=== PATIENT | male | born 1975 | race African-American/Black ===

== ENCOUNTER 2017-11-09 14:01 | Outpatient (CLI) | payer OTHER ==
--- NOTE | 2017-11-09 15:36 | CT ---
CT ARTERIOGRAM ABDOMEN AND PELVIS WITH BILATREAL RUNOFF WITH IV CONTRAST AND 3D MIP IMAGING: HISTORY: Atherosclerosis. Claudication. FINDINGS: Minimal plaque is present within the abdominal aorta. The abdominal aorta and visceral arteries are patent. RIGHT: There is mild plaque in the common femoral artery. Complete occlusion of the right femoral artery or igin is present. Collateral flow via the deep femoral artery reperfuses the popliteal artery at the adductor hiatus. There is mild irregular narrowing within the popliteal artery. Two-vessel runoff t o the ankle is via the posterior tibial and dorsalis pedis arteries. LEFT: Mild plaque is present in the common femoral and femoral arteries. Numerous stents are present along the course of the patent left femoral artery. The popliteal artery is patent. Two-vessel runoff to the ankle is primarily via the peroneal and dorsalis pedis arteries. IMPRESSION: Significant disease is limited to the femoral arteries, with long-segment occlusion of the right femo ral artery and numerous stents holding open the left femoral artery. POS: WAN
[2017-11-09] MEDS ORDERED: Iopamidol 370 76% 100 ML VIAL ONE (17:08)
== END 2017-11-09 14:02 | disposition home or self-care (01) ==
LOC: CT 14:01
PROVIDERS: ATTEND Thoracic Surgery (Cardiothoracic Vascular Surgery)
DX: I73.9 Peripheral vascular disease, unspecified (principal)
CPT/HCPCS: 75635

== ENCOUNTER 2018-05-27 20:00 | Emergency (ER) | payer OTHER ==
[2018-05-27 22:22] LABS: #Basophils 0.1 thou/uL (0.0-0.2); #Eosinphils 0.3 thou/uL (0.0-0.7); #Lymphocytes 3.5 thou/uL (1.20-3.40); #Monocytes 0.6 thou/uL (0.11-0.59); #Neutrophils 2.9 thou/uL (1.40-6.50); %Basophils 1.2 % (0.0-1.0); %Eosinophils 3.5 % (0.0-10.0); %Lymphocytes 47.2 % (21.0-51.0); %Monocytes 8.3 % (0.0-10.0); %Neutrophils 39.7 % (42.0-75.0); Hemoglobin 14.4 g/dL (14.0-18.0); Mean Corpuscular HGB CONC 35.2 g/dL (32.0-36.0); Mean Corpuscular Hemoglobin 29.6 pg (27.0-31.0); Mean Corpuscular Volume 84.2 fL (78.0-98.0); Mean Platelet Volume 9.2 fL (7.4-10.4); Platelet Count 185 thou/uL (130-400); RBC Distribution Width 14.9 % (11.5-14.5); Red Blood Cell (RBC) Count 4.86 mill/uL (4.70-6.10); White Blood Cell (WBC) Count 7.4 thou/uL (4.8-10.8)
[2018-05-27 22:26] LABS: PTT 31.2 SEC (22.9-36.1); Prothrombin Time 13.4 SEC (12.0-14.7)
--- NOTE | 2018-05-27 22:28 | RAD ---
RADIOGRAPH RIGHT KNEE FOUR VIEWS: History: 43-year-old male with right knee pain. FINDINGS: No joint effusion. No edema in Hoffa's fat pad. Joint spaces are maintained without erosions or osteo phytes. No fracture or dislocation. No periostitis or permeative lesion. Short segment of atheroscler otic calcification involve the popliteal artery. IMPRESSION: 1. Normal knee. 2. Atherosclerosis of the popliteal artery. POS: WAN
[2018-05-27 22:35] LABS: Anion Gap 13 mmol/L (10-20); BUN (Urea Nitrogen) 15 mg/dL (8.9-20.6); Calc. Creatinine Clearance 0 mL/min (70-130); Calcium 9.1 mg/dL (7.8-10.44); Carbon Dioxide 22 mmol/L (22-29); Chloride 110 mmol/L (98-107); Estimated GFR-MDRD 68; Glucose 100 mg/dL (70-105); Potassium 4.1 mmol/L (3.5-5.1); Sodium 141 mmol/L (136-145)
--- NOTE | 2018-05-27 23:20 | ULT ---
ULTRASOUND WITH DOPPLER DUPLEX VENOUS LOWER EXTREMITY RIGHT: HISTORY: 43-year-old male with right lower extremity pain. TECHNIQUE: Color flow Doppler, spectral waveform analysis of pulsed Doppler, and hawk-scale imaging with sarah shoaib and augmentation, were used to evaluate the right common femoral, femoral, popliteal, posterior tibial, and superficial femoral, veins; and the proximal portions of the profunda femoral and greater saphenous, veins. FINDINGS: There is normal compressibility, demonstration of blood flow by color Doppler and pulsed Doppler, and response to augmentation, in all interrogated veins. IMPRESSION: Negative. No deep vein thrombosis in the right lower extremity. marifer POS: WAN
--- NOTE | 2018-05-28 00:01 | ULT ---
ULTRASOUND DOPPLER DUPLEX ARTERIAL RIGHT LOWER EXTREMITY: DATE: 05-27-18 TIME: 11:19 p.m. HISTORY: 43-year-old male with right lower extremity pain. History of vascular insufficiency. TECHNIQUE: Grayscale, color flow, and spectral analysis of major arteries of right lower extremity. FINDINGS: Peak systolic velocities given in cm/s followed by pulse doppler waveform. Common femoral: 80, triphasic Profunda femoral: 140, triphasic Superficial femoral, proximal: No flow detected Superficial femoral, mid: No flow detected Superficial femoral, distal: 110, monophasic Popliteal: 30, monophasic Posterior tibial proximal: 20, monophasic Posterior tibial mid: 20, monophasic Posterior tibial distal: 20, monophasic Anterior tibial: No flow detected Dorsalis pedis: No flow detected IMPRESSION: 1. Total versus near-total occlusion of right superficial femoral artery, from proximal to mid segmen ts. Reconstitution of flow at distal segment. 2. Abnormally low velocities and abnormal waveforms in the right popliteal artery through the entire posterior tibial artery. 3. Occlusion of right anterior tibial artery and dorsalis pedis artery. POS: WAN
--- NOTE | 2018-05-28 01:36 | CON ---
DATE OF CONSULTATION: 05/28/2018 EMERGENCY DEPARTMENT VISIT HISTORY OF PRESENT ILLNESS: I was called to see the patient with "acute thrombosis of his right leg. " The patient had an arterial ultrasound, which shows diminished waveforms and occlusion of the supe rficial femoral artery with monophasic waveforms distally. Of note, the patient has a chronic peripheral vascular history. He has undergone INSERTER OPERATOR and stenting of the left distal superficial femoral artery in 2013. Subsequent angiograms and INSERTER OPERATOR with drug-eluting balloon in 2016 of the left superficial femoral artery. He was seen in October of this year with a CT angiogram and I had a long discussion with him in regard to his right leg. At that time, he had 50-yard claudication. He had monophasic Doppler signals in his dorsalis pedis, posterior tibial dean waqas. He was advised that he needed a wlxwbls-zv-cuvuvadvs bypass and has failed to follow up. When questioned on this, the patient states that he just had things come up and was not able to follow up . Today, he comes in to the Emergency Department with right knee pain. This was felt to be a vascular issue and arterial ultrasound was performed due to the perceived vascular nature of his right knee pa in. The patient continues to have 50-yard claudication. He has no rest pain. He has no ulcerations . He has no history of tissue loss or impending limb loss. PAST MEDICAL HISTORY: 1. Peripheral vascular disease. 2. Hyperlipidemia. 3. Hypertension. 4. Claudication. 5. History of cerebrovascular accident. PAST SURGICAL HISTORY: 1. Angiograms and stenting of his left distal superficial femoral artery in 2013. 2. Thrombectomy of SFA, popliteal, PT with drug-eluting balloon angioplasty in 2017. SOCIAL HISTORY: He is a former smoker that quit at the end of 2016. ALLERGIES: None. CURRENT MEDICATIONS: 1. Aspirin 81 mg daily. 2. Carvedilol 25 mg b.i.d. 3. Amlodipine 10 mg daily. 4. Atorvastatin 40 mg every day. REVIEW OF SYSTEMS: Not performed due to the patient's reluctance to discuss. PHYSICAL EXAMINATION: GENERAL: This is a well-developed, well-nourished man who is actually asleep in the room when I walk ed in. His girlfriend is present and helps with our discussion. VITAL SIGNS: His pulse is 85 and regular, blood pressure is 140/72. HEENT: Sclerae nonicteric. Pupils equal and round bilaterally. NECK: Supple. He has no carotid bruits. He has no adenopathy. CHEST: Clear bilaterally. HEART: Rhythm is regular without murmur. ABDOMEN: Soft and nontender without mass. EXTREMITIES: There is no cyanosis, clubbing, or edema. Veins are full bilaterally. Feet are of equ al temperature bilaterally. VASCULAR: He has palpable carotid, radial, and femoral pulses bilaterally. His dorsalis pedis and p osterior tibial pulses are dopplerable on the left with a biphasic signal. On the right, there is a monophasic signal distally. CT angiogram from 10/2017 has been reviewed. ASSESSMENT AND PLAN: This is a 43-year-old gentleman who came to the Emergency Department with a rig ht knee pain. He has had a vascular workup which has nothing to do with his right knee pain. He has been a very unreliable patient in followup. He left AMA from his last angiogram when Dr. Anthony was trying to do a yyhlmud-ev-qwmkckdiu bypass. I have seen him back in the office and been unable to g et him come in for pbgxvgc-yj-qgbwnytzs bypass. Apparently, the claudication on his right leg is not severe enough yet that he is willing to undergo bypass. In regards to his right knee pain, I have discussed with the Emergency Department physician that he n eeds to work his knee pain up and see if he can help him with his knee pain. I will try once again t o reschedule him for an office visit in hopes that I can sort through some of these other issues and help him get the help that he needs with his vascular issues.
== END 2018-05-28 01:19 | disposition home or self-care (01) ==
LOC: ERS 20:00
DX: I77.1 Stricture of artery (principal); M25.561 Pain in right knee; I10 Essential (primary) hypertension; Z79.899 Other long term (current) drug therapy
CPT/HCPCS: 80048; 85025; 85610; 85730; 93923; 96374; J2270

== ENCOUNTER 2018-06-06 11:15 | Inpatient (IN) | payer OTHER ==
[2018-06-07] MEDS ORDERED: Fentanyl 250 MCG/5 ML VIAL ONE ×2 (10:28→14:26)
[2018-06-07] MEDS ORDERED: PHENYLEPHRINE-NS 100 MCG/ML 10 ML SYRINGE ONE (10:28)
[2018-06-07] MEDS ORDERED: Phenylephrine HCL 10 MG/ML VIAL ONE (10:30)
[2018-06-07] MEDS ORDERED: Protamine Sulfate 50 MG/5 ML VIAL ONE (10:38)
[2018-06-07] MEDS ORDERED: Heparin 5,000 UNITS/ML VIAL ONE ×2 (10:38→12:34)
[2018-06-07] MEDS ORDERED: CEFAZOLIN/Water 2 GM/20 ML SYRINGE ONE (10:41)
[2018-06-07] MEDS ORDERED: Midazolam HCl 2 mg/2 ml Vial ONE (12:10)
[2018-06-07] MEDS ORDERED: Fentanyl 100 MCG/2 ML VIAL ONE (12:10)
[2018-06-07] MEDS ORDERED: Heparin 10,000 UNITS/1 ML VIAL ONE (12:35)
[2018-06-07] MEDS ORDERED: HYDROmorphone 2 MG/ML VIAL ONE (14:26)
[2018-06-07] MEDS ORDERED: hydrALAZINE 20 MG/ML VIAL ONE ×2 (15:32→17:36)
[2018-06-07] MEDS ORDERED: Promethazine HCl 25 MG/ML VIAL SLOW IVP PRN (16:09)
[2018-06-07] MEDS ORDERED: Ketorolac Tromethamine 30 MG/ML VIAL IVP PRN (16:09)
[2018-06-07] MEDS ORDERED: Meperidine HCl/PF 25 MG/ML VIAL SLOW IVP PRN (16:09)
[2018-06-07] MEDS ORDERED: Promethazine HCl 25 MG/ML VIAL IM PRN ×2 (16:09→18:40)
[2018-06-07] MEDS ORDERED: HYDROmorphone 2 MG/ML VIAL SLOW IVP PRN (16:09)
[2018-06-07] MEDS ORDERED: Promethazine HCl 25 MG/ML VIAL ONE (16:41)
[2018-06-07] MEDS ORDERED: Acetaminophen 325 MG TAB PO PRN (18:40)
[2018-06-07] MEDS ORDERED: hydrALAZINE 20 MG/ML VIAL SLOW IVP PRN (18:40)
[2018-06-07] MEDS ORDERED: Promethazine HCl 25 MG/ML VIAL PR PRN (18:40)
[2018-06-07] MEDS ORDERED: Ondansetron HCl/PF 4 MG/2 ML Vial IVP PRN (18:40)
[2018-06-07] MEDS ORDERED: HYDROcodone/Acetaminophen 5/325 mg Tablet PO PRN ×2 (18:40)
[2018-06-07] MEDS ORDERED: Nitroglycerin 50 MG/250 ML BOT 250 ML IVPB PRN (18:40)
[2018-06-07] MEDS ORDERED: Morphine 4 MG/ML VIAL SLOW IVP PRN (18:40)
[2018-06-07] MEDS: D5 1/2 NS w/20 mEq KCL 1,000 ML IV SCH (19:14)
[2018-06-07] MEDS: CEFAZOLIN/Water 2 GM/20 ML SYRINGE SLOW IVP SCH (19:24)
[2018-06-07 20:45] VITALS: BMI 34.2
[2018-06-07] MEDS ORDERED: Amlodipine 5 MG TAB PO SCH (21:00)
[2018-06-07] MEDS ORDERED: Pravastatin Sodium 20 MG TAB PO SCH (21:00)
[2018-06-07] MEDS: Carvedilol 25 MG TAB PO SCH (21:40)
--- NOTE | 2018-06-07 23:10 | OP ---
DATE OF OPERATION: 06/07/2018 PREOPERATIVE DIAGNOSIS: Peripheral vascular disease. POSTOPERATIVE DIAGNOSIS: Peripheral vascular disease. PROCEDURES: Right common femoral to above knee popliteal artery bypass utilizing in situ greater saphenous vein. SURGEON: Yousif Sherman M.D. ANESTHESIA: General endotracheal- Eli Fox CRNA. ESTIMATED BLOOD LOSS: Less than 100. DESCRIPTION OF PROCEDURE: After consent was obtained, patient was brought to the operating room and placed in the supine position on the operating room table. Appropriate anesthetic monitor was placed and general endotracheal anesthesia induced. Right leg was interrogated with ultrasound and the greater saphenous vein marked. Right leg was then prepped and draped in the usual sterile fashion. Skin incision was made over the saphenous vein below the knee. Vein at this level with inadequate for use. It was followed proximally through skip incisions all the way to the groin just at the level of the knee became adequate for bypass. The common femoral artery, profunda femoris, and superficial femoral arteries were then exposed through groin incision. Above knee popliteal artery was exposed through an incision at Daryn's canal. The popliteal artery was a small, soft artery measuring approx 8mm in diameter, Patient was systemically heparinized. Greater saphenous vein was removed tying both proximal and distal vein and removed the intervening segment. Vein was then distended. The valves were lysed with LeMaitre Valvulotome. Branches were tied. There was excellent flow through the vein and the vein caliber was approximately between 4-6 mm throughout its length. Vein was marked. The vein was then tunneled through the skip incisions from groin to the above knee popliteal area. After adequate heparinization, the profunda femoris and common femoral arteries were clamped. The common femoral was a soft artery measuring approx 1cm in diamteer. Incision was made on the common femoral artery and a proximal anastomosis created with running 6-0 Prolene suture between saphenous vein and femoral artery. On release of clamps, good flow through the graft. Graft was flushed with heparin saline and clamped proximally. Graft was then cut to appropriate length and anastomosed the popliteal artery with running 6-0 Prolene suture. Clamps were released, there was excellent pulse within the popliteal artery. Doppler signal abated with compression of the graft. 50 mg of protamine was given. Wounds were irrigated, closed in layers. Skin clips were placed in the incisions except for the groin incision was closed with a subcuticular stitch. Dressings were then applied. Patient was awakened, extubated, and transferred to the recovery room in stable condition. Needle, sponge, and instrument counts were all reported correct at the end of the procedure. STEPHEN
[2018-06-08] MEDS: D5 1/2 NS w/20 mEq KCL 1,000 ML IV SCH (02:55)
[2018-06-08] MEDS: CEFAZOLIN/Water 2 GM/20 ML SYRINGE SLOW IVP SCH ×2 (02:55→10:35)
[2018-06-08 08:59] VITALS: TEMP 98.6
[2018-06-08] MEDS ORDERED: Clopidogrel Bisulfate 75 MG TAB PO SCH (09:00)
[2018-06-08] MEDS ORDERED: Aspirin 81 mg Enteric Coated Tablet PO SCH (09:00)
[2018-06-08] MEDS: Carvedilol 25 MG TAB PO SCH (09:12)
[2018-06-08 12:59] VITALS: BP 148/79
--- NOTE | 2018-06-08 13:45 | DIS ---
DATE OF ADMISSION: 06/07/2018 DATE OF DISCHARGE: 06/08/2018 DIAGNOSES: Peripheral vascular disease. PROCEDURES: Right femoral to above knee popliteal artery bypass utilizing in situ saphenous vein. DESCRIPTION OF HOSPITAL STAY: Mr. Santacruz is a 43-year-old gentleman with chronic peripheral vascular d isease. He underwent right leg bypass. He has done well postoperatively. He has good Doppler signa l within the graft in his dorsalis pedis artery. Being discharged to home to follow up with me in 2 weeks. Discharge medications are the same as his home regimen with the exception of the addition of Plavix 75 mg daily.
== END 2018-06-08 12:00 | disposition home or self-care (01) | DRG 254 ==
LOC: SURG A 06-07 10:10 → EDSTATUS 06-07 11:15 → CCU 06-07 18:27
PROVIDERS: ADMIT Thoracic Surgery (Cardiothoracic Vascular Surgery); ATTEND Thoracic Surgery (Cardiothoracic Vascular Surgery)
PROC: 061M09Y Bypass Right Femoral Vein to Lower Vein with Autologous Venous Tissue, Open Approach (ICD-10-PCS; principal; 2018-06-07)
DX: I73.9 Peripheral vascular disease, unspecified (principal)
CPT/HCPCS: 86850; 86900; 86901; 88184; 88307; 93005; 93010; G8978-GP-CK; G8979-GP-CJ; J0131; J0360; J1170; J1642; J1644; J2250; J2270; J2370; J2405; J2550; J2720; J3010

== ENCOUNTER 2018-06-06 11:20 | Outpatient (CLI) | payer OTHER | END 2018-06-06 11:21 | disposition home or self-care (01) | LOC: LABBT 11:20 | PROVIDERS: ATTEND Thoracic Surgery (Cardiothoracic Vascular Surgery) | DX: Z01.818 Encounter for other preprocedural examination (principal); I73.9 Peripheral vascular disease, unspecified | CPT/HCPCS: 86850; 86900; 86901; 93005; 93010 ==

== ENCOUNTER 2018-07-20 08:07 | Outpatient (CLI) | payer OTHER ==
--- NOTE | 2018-07-20 13:30 | CT ---
CT ANGIOGRAM OF THE ABDOMEN CT ANGIOGRAM OF THE PELVIS CT ANGIOGRAM RUNOFF TO THE FEET AND LOWER EXTREMITY: Date: 07/20/18 HISTORY: I73.9 peripheral vascular disease. New stents in right leg. COMPARISON: CT angiogram dated 11/09/17. FINDINGS: Lung bases are clear. No pericardial effusion. Liver, spleen, gallbladder, and pancreas are all unremarkable. No retroperitoneal adenopathy. No dilated loops of large or small bowel. No hydronephrosis. Adrenal glands are unremarkable. Thoracic spine is unremarkable. There is complete occlusion of the right femoral artery. Recent postoperative changes of the right gr oin. There is reconstitution of flow of the popliteal artery due to collaterals in the deep femoral a rtery. There is minimal flow in the anterior tibial artery proximally with no flow distally. The left femoral artery is patent with an impatent stent. Popliteal artery is patent. There is occlus ion of the anterior tibial artery. IMPRESSION: 1. Continued occlusion right femoral artery with reconstitution of the popliteal artery due to colla teralizations on the deep femoral artery. 2. Occluded bilateral anterior tibial arteries. 3. Patent left distal femoral stent graft. POS: OFF
== END 2018-07-20 08:08 | disposition home or self-care (01) ==
LOC: CT 08:07
PROVIDERS: ATTEND Thoracic Surgery (Cardiothoracic Vascular Surgery)
DX: I73.9 Peripheral vascular disease, unspecified (principal); I70.201 Unspecified atherosclerosis of native arteries of extremities, right leg; I70.202 Unspecified atherosclerosis of native arteries of extremities, left leg
CPT/HCPCS: 75635

== ENCOUNTER 2018-07-30 06:02 | Inpatient (IN) | payer OTHER ==
[2018-07-30] MEDS ORDERED: Heparin 5,000 UNITS/ML VIAL ONE (06:25)
[2018-07-30] MEDS ORDERED: Protamine Sulfate 50 MG/5 ML VIAL ONE ×2 (06:25→09:07)
[2018-07-30] MEDS ORDERED: Fentanyl 250 MCG/5 ML VIAL ONE (06:43)
[2018-07-30 06:44] LABS: #Eosinphils 0.3 thou/uL (0.0-0.7); #Lymphocytes 2.6 thou/uL (1.20-3.40); #Monocytes 0.4 thou/uL (0.11-0.59); #Neutrophils 2.1 thou/uL (1.40-6.50); %Basophils 0.9 % (0.0-1.0); %Eosinophils 5.4 % (0.0-10.0); %Monocytes 7.6 % (0.0-10.0); %Neutrophils 38.1 % (42.0-75.0); Hemoglobin 13.8 g/dL (14.0-18.0); Mean Corpuscular HGB CONC 32.6 g/dL (32.0-36.0); Mean Corpuscular Hemoglobin 28.2 pg (27.0-31.0); Mean Corpuscular Volume 86.6 fL (78.0-98.0); Mean Platelet Volume 8.8 fL (7.4-10.4); Platelet Count 222 thou/uL (130-400); RBC Distribution Width 14.7 % (11.5-14.5); Red Blood Cell (RBC) Count 4.89 mill/uL (4.70-6.10); White Blood Cell (WBC) Count 5.5 thou/uL (4.8-10.8)
[2018-07-30] MEDS ORDERED: CEFAZOLIN 2 GM/50 ML BAG ONE (06:55)
[2018-07-30 06:56] LABS: Anion Gap 10 mmol/L (10-20); BUN (Urea Nitrogen) 16 mg/dL (8.9-20.6); Calc. Creatinine Clearance 143 mL/min (70-130); Calcium 8.8 mg/dL (7.8-10.44); Carbon Dioxide 22 mmol/L (22-29); Chloride 111 mmol/L (98-107); Estimated GFR-MDRD Greater than 90; Glucose 105 mg/dL (70-105); Potassium 4.1 mmol/L (3.5-5.1); Sodium 139 mmol/L (136-145)
[2018-07-30] MEDS ORDERED: Midazolam HCl 2 mg/2 ml Vial ONE (07:03)
[2018-07-30] MEDS ORDERED: Rocuronium Bromide 50 MG/5 ML VIAL ONE (08:27)
[2018-07-30 08:59] VITALS: BMI 32.9
[2018-07-30] MEDS ORDERED: Fentanyl 100 MCG/2 ML VIAL ONE (09:25)
--- NOTE | 2018-07-30 10:10 | OP ---
DATE OF OPERATION: 07/30/2018 PREOPERATIVE DIAGNOSIS: Peripheral vascular disease with failed right femoral to above-knee poplitea l artery bypass with in situ vein. POSTOPERATIVE DIAGNOSIS: Peripheral vascular disease with failed right femoral to above-knee poplite al artery bypass with in situ vein. PROCEDURE: Redo right femoral to above-knee popliteal artery bypass with 8 mm ring Propaten-coated [place]-Eris. SURGEON: Yousif Sherman M.D. ANESTHESIA: General endotracheal. ESTIMATED BLOOD LOSS: 150 mL. DESCRIPTION OF PROCEDURE: After consent was obtained, the patient was brought to operating room and placed in supine position on the operating room table. Appropriate anesthetic monitor was placed and general endotracheal anesthesia induced. Right leg was prepped and draped in usual sterile fashion. Previous groin incision was opened. Dissection down the common femoral artery was obtained above t he scar tissue. This was followed distally and the common femoral artery was dissected free from kei rounding tissues down to the profunda takeoff. Circumferential control was obtained. Attention was then turned to the above-knee incision. This was opened and extended distally. The distal popliteal artery, distal to our previous graft, was isolated and followed proximally to allow for distal anast omosis. The patient was given 7500 units of heparin. During heparinization, an 8-mm ring Propaten-c oated [place]-Eris was tunneled under the skin. This was cut to appropriate length and shape for proxima l anastomosis. The common femoral artery was clamped proximally and distally after 3 minutes. Incis ion was made in the proximal anastomosis created between the common femoral and Cashion-Eris graft with r unning 5-0 Prolene suture. On release of clamps, there was bleeding from needle holes only. Graft w as bled and flushed with heparinized saline and clamped. Distal anastomosis was created with running 6-0 Prolene suture. Clamps were removed. Antegrade flow was reestablished. There was a great puls e distal to the graft. The protamine was administered. Hemostasis was ensured in both incisions. W ounds were copiously irrigated, closed in layers, and skin closed with clips. Sterile dressings were then applied. The patient was awakened, extubated, and transferred to the recovery room in stable c ondition.
[2018-07-30] MEDS ORDERED: Fentanyl 100 MCG/2 ML VIAL SLOW IVP PRN ×2 (11:00)
[2018-07-30] MEDS ORDERED: Promethazine HCl 25 MG/ML VIAL IM PRN (11:00)
[2018-07-30] MEDS ORDERED: Promethazine HCl 25 MG/ML VIAL PR PRN (11:00)
[2018-07-30] MEDS ORDERED: HYDROcodone/Acetaminophen 5/325 mg Tablet PO PRN (11:00)
[2018-07-30] MEDS ORDERED: Ondansetron PF 4 MG/2 ML Vial IVP PRN (11:00)
[2018-07-30] MEDS ORDERED: Acetaminophen 325 MG TAB PO PRN (11:00)
[2018-07-30] MEDS: HYDROcodone/Acetaminophen 5/325 mg Tablet PO PRN ×2 (11:24→20:58)
[2018-07-30] MEDS: D5 1/2 NS w/20 mEq KCL 1,000 ML IV SCH ×2 (11:25→21:12)
[2018-07-30] MEDS ORDERED: hydrALAZINE 20 MG/ML VIAL SLOW IVP PRN ×2 (12:35)
[2018-07-30] MEDS ORDERED: CEFAZOLIN 2 GM/50 ML BAG IVPB SCH (14:00)
[2018-07-30] MEDS ORDERED: Lidocaine 1% PF 5 ML VIAL ONE (15:09)
[2018-07-30] MEDS ORDERED: Glycopyrrolate 0.2 MG/ML 5 ML SYRINGE ONE (15:09)
[2018-07-30] MEDS ORDERED: Metoclopramide HCl 10 MG/2 ML VIAL ONE (15:09)
[2018-07-30] MEDS ORDERED: Heparin 10,000 UNITS/ 10 ML VIAL ONE (15:09)
[2018-07-30] MEDS ORDERED: PHENYLEPHRINE-NS 100 MCG/ML 10 ML SYRINGE ONE (15:09)
[2018-07-30] MEDS ORDERED: PROPOFOL 200 MG/20 ML VIAL ONE (15:09)
[2018-07-30] MEDS ORDERED: Ondansetron PF 4 MG/2 ML Vial ONE (15:09)
[2018-07-30] MEDS ORDERED: Dexamethasone 20 MG/5 ML VIAL ONE (15:09)
[2018-07-30] MEDS: CEFAZOLIN 2 GM/50 ML BAG IVPB SCH (16:44)
[2018-07-30] MEDS ORDERED: Carvedilol 6.25 MG TAB PO SCH (21:00)
[2018-07-30] MEDS ORDERED: Atorvastatin Calcium 40 MG TAB PO SCH (21:00)
[2018-07-30] MEDS ORDERED: Amlodipine 10 MG TAB PO SCH (21:00)
[2018-07-31] MEDS: CEFAZOLIN 2 GM/50 ML BAG IVPB SCH ×2 (00:46→07:57)
[2018-07-31] MEDS: HYDROcodone/Acetaminophen 5/325 mg Tablet PO PRN ×3 (00:47→15:00)
[2018-07-31] MEDS ORDERED: Carvedilol 25 MG TAB PO SCH (09:00)
[2018-07-31] MEDS ORDERED: Clopidogrel Bisulfate 75 MG TAB PO SCH (09:00)
[2018-07-31] MEDS ORDERED: Terbinafine 250 MG TAB PO SCH (09:00)
[2018-07-31 16:09] VITALS: TEMP 97.9
[2018-07-31 17:47] VITALS: BP 163/87
--- NOTE | 2018-08-01 02:48 | DIS ---
DATE OF ADMISSION: 07/30/2018 DATE OF DISCHARGE: 07/31/2018 DIAGNOSIS: Peripheral vascular disease with failed right femoral to popliteal artery, above knee in- situ vein bypass. PROCEDURE: Redo right femoral to above knee popliteal artery bypass utilizing 8-mm ring Propaten-coa blue [place]-Eris. DISCHARGE MEDICATIONS: 1. Aspirin 81 mg every day. 2. Plavix 75 mg every day. 3. Lipitor 40 mg at bedtime. 4. Coreg 25 mg b.i.d. 5. Norvasc 10 mg at bedtime. 6. Lamisil 250 mg q.a.m. 7. [place] 5/325 1-2 q.6 hours p.r.n. for pain. DESCRIPTION OF HOSPITAL STAY: Mr. Santacruz was admitted for elective redo bypass. He has done well and is being discharged to home to follow up with me in 2 weeks.
== END 2018-07-31 18:10 | disposition home or self-care (01) | DRG 254 ==
LOC: SURG A 06:02
PROVIDERS: ADMIT Thoracic Surgery (Cardiothoracic Vascular Surgery); ATTEND Thoracic Surgery (Cardiothoracic Vascular Surgery)
PROC: 041K0JL Bypass Right Femoral Artery to Popliteal Artery with Synthetic Substitute, Open Approach (ICD-10-PCS; principal; 2018-07-30)
DX: T82.898A Other specified complication of vascular prosthetic devices, implants and grafts, initial encounter (principal); I73.9 Peripheral vascular disease, unspecified; Y83.8 Other surgical procedures as the cause of abnormal reaction of the patient, or of later complication, without mention of misadventure at the time of the procedure; E78.5 Hyperlipidemia, unspecified; I10 Essential (primary) hypertension; Z86.73 Personal history of transient ischemic attack (TIA), and cerebral infarction without residual deficits
CPT/HCPCS: 36415; 80048; 85025; G8978-GP-CJ; G8979-GP-CJ; G8980-GP-CJ; J0360; J1100; J1642; J1644; J2001; J2250; J2405; J2704; J2720; J2765; J3010

== ENCOUNTER 2019-04-08 13:43 | Outpatient (CLI) | payer OTHER ==
[~2019-04-08 13:43] MED LIST: Iopamidol 370 76% 100 ML VIAL ONE
--- NOTE | 2019-04-08 17:35 | CT ---
CT ANGIOGRAM ABDOMEN WITH CONTRAST: CT ANGIOGRAM PELVIS WITH CONTRAST: CT ANGIOGRAM RUNOFF TO THE FEET WITH CONTRAST: HISTORY: I73.9, peripheral vascular disease. COMPARISON: CT angio aorta bilateral with runoff on 07/20/2015. TECHNIQUE: CT angiogram of the abdomen and pelvis with runoff to the feet was performed after the intravenous ad ministration of contrast, and 3D rendering was provided. FINDINGS: The lung bases are clear. No pericardial effusion. The liver, spleen, pancreas, and gallbladder are all unremarkable. No retroperitoneal or periaortic adenopathy. Normal proximal small bowel rotation. The adrenal glan ds are unremarkable. No hydronephrosis. No dilated loops of large or small bowel. The appendix is visualized and is normal. No lumbar spine compression deformity. VESSELS: No aneurysmal dilatation of the aorta. The superior mesenteric artery and celiac trunk are both patent. Both renal arteries are patent. The inferior mesenteric artery is patent. RIGHT SIDE: The common iliac artery is patent. Multifocal 50% stenosis, proximal right internal rishabh ac artery. Near occlusion of the origin of the right internal iliac artery. The external iliac artery is patent. The common femoral artery is patent. The [place] femoral artery is occluded, and there is a right femoral-popliteal stent graft, which is patent. The popliteal art odalis is patent. The posterior tibial and peroneal arteries are patent with occlusion of the anterior tibial artery. Collateral to dorsalis pedis is from the perioneal artery. Near complete occlusion of the origin of the left internal iliac artery. The external iliac artery i s patent. The common femoral artery is patent. There is a focal, 50% stenosis at the origin of the left femoral artery, for a length of 6 mm. The deep femoral artery is patent. Multifocal narrowing of the left femoral artery, 30% to 40%. The left femoral artery stent appears to be patent. The pop liteal artery is patent. The posterior tibial arteries are patent with no significant flow in the an terior tibial artery. IMPRESSION: 1. Patent new right femoral popliteal stent graft. 2. Absence of flow in both anterior tibial arteries, just past the trifurcations, with reconstitutio n of flow in the dorsalis pedis arteries to the peroneal arteries. 3. High-grade stenosis, greater than 75%, both internal iliac artery origins. 4. Concern for a possible near complete occlusion of the very distal left femoral stent, as it measu res 50 Hounsfield units at the distal-most 5 mm, with adequate flow in the left popliteal artery. Co nventional angiogram may be beneficial. POS: HOME
== END 2019-04-08 13:44 | disposition home or self-care (01) ==
LOC: SCSCT 13:43
PROVIDERS: ATTEND Thoracic Surgery (Cardiothoracic Vascular Surgery)
DX: I73.9 Peripheral vascular disease, unspecified (principal); I70.8 Atherosclerosis of other arteries
CPT/HCPCS: 75635; Q9967

== ENCOUNTER 2019-04-10 05:47 | Day surgery (SDC) | payer OTHER ==
[2019-04-09 17:02] VITALS: BMI 33.2
[2019-04-10] MEDS ORDERED: Lidocaine 1% (PF) 30 ML VIAL ONE (06:31)
[2019-04-10] MEDS ORDERED: Heparin 10,000 UNITS/1 ML VIAL ONE (06:31)
[2019-04-10] MEDS ORDERED: Fentanyl 100 MCG/2 ML VIAL ONE (07:01)
[2019-04-10] MEDS ORDERED: Midazolam HCl 2 mg/2 ml Vial ONE (07:01)
[2019-04-10 07:08] LABS: #Eosinphils 0.2 thou/uL (0.0-0.7); #Lymphocytes 2.8 thou/uL (1.20-3.40); #Monocytes 0.6 thou/uL (0.11-0.59); #Neutrophils 3.5 thou/uL (1.40-6.50); %Basophils 0.6 % (0.0-1.0); %Eosinophils 2.7 % (0.0-10.0); %Lymphocytes 39.4 % (21.0-51.0); %Neutrophils 49.4 % (42.0-75.0); Hemoglobin 15.5 g/dL (14.0-18.0); Mean Corpuscular HGB CONC 32.3 g/dL (32.0-36.0); Mean Corpuscular Hemoglobin 27.7 pg (27.0-31.0); Mean Corpuscular Volume 85.6 fL (78.0-98.0); Mean Platelet Volume 10.4 fL (7.4-10.4); Platelet Count 186 thou/uL (130-400); RBC Distribution Width 15.3 % (11.5-14.5); White Blood Cell (WBC) Count 7.2 thou/uL (4.8-10.8)
[2019-04-10 07:16] LABS: Anion Gap 11 mmol/L (10-20); BUN (Urea Nitrogen) 18 mg/dL (8.9-20.6); Calc. Creatinine Clearance 133 mL/min (70-130); Calcium 9.2 mg/dL (7.8-10.44); Carbon Dioxide 21 mmol/L (22-29); Chloride 105 mmol/L (98-107); Estimated GFR-MDRD Greater than 90; Glucose 108 mg/dL (70-105); Potassium 4.1 mmol/L (3.5-5.1); Sodium 133 mmol/L (136-145)
[2019-04-10] MEDS ORDERED: hydrALAZINE 20 MG/ML VIAL ONE (08:07)
--- NOTE | 2019-04-10 12:07 | OP ---
DATE OF PROCEDURE: 04/10/2019 PREOPERATIVE DIAGNOSIS: Peripheral vascular disease with left leg rest pain. The patient has a history of left leg superficial femoral artery stenting in 2015. POSTOPERATIVE DIAGNOSIS: Restenosis/occlusion of the left superficial femoral artery. PROCEDURES PERFORMED: 1. Abdominal aortogram. 2. Left external iliac angiogram. 3. Left common femoral artery angiogram. 4. Left superficial femoral artery angiogram. 5. Left popliteal artery angiogram. 6. Left superficial femoral artery percutaneous transluminal angioplasty with a 6 x 100 followed more proximally by a 6 x 80 Lutonix drug-eluting balloon. This was followed with a 6 x 100 in two locations, [place] balloon for residual stenosis. 7. ProGlide closure. 8. Ultrasound-guided right femoral artery access. FLUORO TIME: 8.6 minutes. TOTAL CONTRAST: 49 mL. DESCRIPTION OF PROCEDURE: After consent was obtained, the patient was brought to the clinical lab clerk, placed in supine position on the clinical lab clerk table. Appropriate central line monitoring was placed. The patient was given IV fentanyl and Versed for sedation. Blood pressure was controlled with hydralazine during the procedure. The groins were prepped and draped in usual sterile fashion. Using ultrasound guidance, the right groin was anesthetized with 1% lidocaine and percutaneous access to common femoral artery was obtained. Micropuncture sheath was placed followed by 5-[place] sheath. A Contra catheter was passed in the abdominal aorta. Hand-injected aortograms were performed showing a normal-appearing aorta, common iliac and external iliac artery texture. A Contra catheter was guided over the aortic bifurcation down to the external iliac artery. Digital angiography was used to ap contrast from groin to the knee. On injection, the common femoral artery was widely patent. Profunda was widely patent. There was very sluggish bouncing flow within the superficial femoral artery. This never made it down into the stent. The was moved down to the knee below the stent and hand-injected arteriogram was performed with the tip of the catheter in the superficial femoral artery. This refilled the popliteal artery approximately a centimeter below the stent. The patient was given 5000 units of heparin. A Magic Torque guidewire was passed over the aortic bifurcation down into the SFA stent. A 5-[place]er Destination sheath was knee with its tip in the superficial femoral artery. Angled glide catheter was used to help guide the guidewire down through the SFA stent into the popliteal artery. Hand-injected arteriogram was performed with the tip of the catheter in the popliteal artery confirming intraluminal location. Sheath was removed over the Magic Torque guidewire. We elected to pre-dilate the stent with a [place] balloon. This was performed for 2 minutes to a pressure of 10 mmHg. Followup angiogram showed patent arterial system. The runoff to the foot was via a posterior tibial artery. There was no runoff in the anterior tibial or peroneal arteries. A 6-mm Lutonix balloon was selected. This was positioned just at the popliteal crossing of the femur. This was inflated for 3 minutes. A second 80 mm balloon was inflated in the proximal stent extending up above the stent for 3 minutes. Followup angiogram showed 2 areas, one at the junction of the 2 stents and one just distal to the stent that had residual critical stenosis. A 6 x 100 [place] balloon was then placed and inflated within the 2 areas. These were held for 2-minute inflations. Followup angiogram showed an excellent result. The Magic Torque guidewire was removed. Destination sheath was brought back over the aortic bifurcation and Bentson guidewire placed. ProGlide closure was then performed. There was excellent hemostasis. The patient tolerated the procedure well. His symptoms were relieved after re-establishing flow through the superficial femoral artery. He will be kept in the recovery area for 2 hours, ambulated and then home today. We will start him on Plavix. Job ID: [id number] [facility]
[2019-04-10] MEDS ORDERED: Iopamidol 370 76% 50 ML VIAL FS ONE (13:27)
== END 2019-04-10 11:01 | disposition home or self-care (01) ==
LOC: CCL 05:47
PROVIDERS: ATTEND Thoracic Surgery (Cardiothoracic Vascular Surgery)
PROC: B41D1ZZ Fluoroscopy of Aorta and Bilateral Lower Extremity Arteries using Low Osmolar Contrast (ICD-10-PCS; principal; 2019-04-10)
DX: I70.212 Atherosclerosis of native arteries of extremities with intermittent claudication, left leg (principal); E78.2 Mixed hyperlipidemia; I10 Essential (primary) hypertension; Z86.73 Personal history of transient ischemic attack (TIA), and cerebral infarction without residual deficits; Z87.891 Personal history of nicotine dependence; Z79.82 Long term (current) use of aspirin; Z79.899 Other long term (current) drug therapy
CPT/HCPCS: 37224; 76942; 80048; 85025; 85347; 99152; 99153; C1725; C1760; C1769; C1887; C2623; J0360; J1644; J2001; J2250; J3010; Q9967

== ENCOUNTER 2019-12-27 12:38 | Outpatient (CLI) | payer OTHER ==
[~2019-12-27 12:38] MED LIST changes: -Iopamidol 370 76% 100 ML VIAL ONE; +Magnevist 469MG/ML 20 ML VIAL ONE
--- NOTE | 2019-12-27 14:28 | RAD ---
TWO VIEWS OF THE SKULL: INDICATION: MRI safety clearance. COMPARISON: None. FINDINGS: There is an endovascular stent in the region of the left MCA. There was concern that the patient had intracranial vascular clips from a procedure 2 years ago at [facility] in [place], [place]. The patient was a poor historian and could not recollect. No interval comparisons were available si nce a CT of the brain dated 01/03/2015. No acute osseous abnormality is evident. IMPRESSION: Endovascular stent in the region of the left MCA. The patient reportedly said that this was placed a bout 2 years ago at [facility] in [place], [place]. Information concerning this stent was n ot provided. POS: [facility]
--- NOTE | 2019-12-27 15:38 | MRI ---
MRI OF THE BRAIN WITH AND WITHOUT IV CONTRAST: INDICATION: History of posterior headache with a history of stroke and endovascular stent placement 2-3 years ago . CONTRAST: 20 cc of MultiHance. COMPARISON: MRI of the brain without contrast dated 01/04/2015. FINDINGS: No area of restricted diffusion is evident to suggest acute ischemia. There are areas of encephaloma lacia involving the lateral left frontal lobe and left parietal lobe. There are stable remote lacuna r infarcts involving the left caudate head and left globus pallidus as well as the right globus palli dus. There is a stable remote lacunar infarct involving the right caudate body. Septum pellucidum a nd third ventricle are midline. There are appropriate flow voids within the major intracranial vesse ls. There is a mucous retention cyst within the inferior aspect of the right and left maxillary sinu s. No definite abnormal region of enhancement is demonstrated. There are areas of mild encephalomal acia involving the lateral left temporal lobe. IMPRESSION: 1. Interval development of a left-sided MCA distribution infarcts with areas of cortical and subcort ical encephalomalacia involving the left frontal lobe, left temporal lobe, and left parietal lobe. 2. Stable remote lacunar infarcts involving both globus pallidus as well as the left caudate head an d right caudate body. 3. No acute infarct demonstrated. 4. No abnormal enhancement demonstrated. POS: [facility]
== END 2019-12-27 12:39 | disposition home or self-care (01) ==
LOC: BICMRI 12:38
PROVIDERS: ATTEND Family Medicine
DX: G44.1 Vascular headache, not elsewhere classified (principal); Z98.890 Other specified postprocedural states; Z86.73 Personal history of transient ischemic attack (TIA), and cerebral infarction without residual deficits
CPT/HCPCS: 70250; 70553; 82565

== ENCOUNTER 2020-09-28 12:04 | Outpatient (CLI) | payer OTHER | END 2020-09-28 12:05 | disposition home or self-care (01) | LOC: ULT 12:04 | PROVIDERS: ATTEND Psychiatry & Neurology Neurology | DX: Z02.71 Encounter for disability determination (principal); I73.9 Peripheral vascular disease, unspecified | CPT/HCPCS: 93922 ==

== ENCOUNTER 2021-03-30 01:58 | Inpatient (IN) | payer OTHER ==
[2021-03-30] MEDS ORDERED: Morphine 4 MG/ML VIAL ONE (02:21)
[2021-03-30] MEDS ORDERED: Ondansetron PF 4 MG/2 ML Vial ONE (02:21)
[2021-03-30 02:39] LABS: #Basophils 0.1 thou/uL (0.0-0.2); #Eosinphils 0.1 thou/uL (0.0-0.7); #Lymphocytes 1.3 thou/uL (1.20-3.40); #Monocytes 0.5 thou/uL (0.11-0.59); %Eosinophils 1.6 % (0.0-10.0); %Lymphocytes 16.4 % (21.0-51.0); %Monocytes 5.8 % (0.0-10.0); %Neutrophils 75.1 % (42.0-75.0); Hemoglobin 15.7 g/dL (14.0-18.0); Mean Corpuscular HGB CONC 34.3 g/dL (32.0-36.0); Mean Corpuscular Hemoglobin 29.9 pg (27.0-31.0); Platelet Count 156 thou/uL (130-400); Red Blood Cell (RBC) Count 5.25 mill/uL (4.70-6.10)
[2021-03-30 02:51] LABS: INR-International Normal Ratio 0.9; Prothrombin Time 12.6 sec (12.0-14.7)
[2021-03-30 02:58] LABS: ALT (SGPT) 27 U/L (8-55); AST (SGOT) 27 U/L (5-34); Albumin 3.7 g/dL (3.5-5.0); Alkaline Phosphatase 73 U/L (40-110); Anion Gap 16 mmol/L (10-20); BUN (Urea Nitrogen) 18 mg/dL (8.9-20.6); Bilirubin, Total 0.2 mg/dL (0.2-1.2); Calc. Creatinine Clearance 0 mL/min (70-130); Calcium 9.1 mg/dL (7.8-10.44); Carbon Dioxide 21 mmol/L (22-29); Chloride 107 mmol/L (98-107); Globulin 3.1 g/dL (2.4-3.5); Glucose 125 mg/dL (70-105); Potassium 3.7 mmol/L (3.5-5.1); Protein, Total 6.8 g/dL (6.0-8.3); Sodium 140 mmol/L (136-145)
[2021-03-30] MEDS ORDERED: Heparin 25,000 units/D5W 500 ML ONE (03:05)
[2021-03-30] MEDS ORDERED: Heparin 10,000 UNITS/ 10 ML VIAL ONE ×2 (03:06→11:49)
[2021-03-30] MEDS ORDERED: Aspirin Chewable 81 MG TAB ONE (03:08)
[2021-03-30 04:24] LABS: SARS-CoV-2 NAA Rapid Test Not Detected (NotDetected)
[2021-03-30] MEDS ORDERED: Heparin 1,000 UNITS/ML VIAL SLOW IVP SCH (05:30)
[2021-03-30] MEDS ORDERED: Ondansetron PF 4 MG/2 ML Vial IVP PRN (07:17)
[2021-03-30] MEDS ORDERED: Heparin 25,000 units/D5W 500 ML IVPB SCH (07:17)
[2021-03-30] MEDS ORDERED: Fentanyl 100 MCG/2 ML VIAL SLOW IVP PRN (07:17)
[2021-03-30] MEDS ORDERED: Heparin 10,000 UNITS/ 10 ML VIAL SLOW IVP SCH (07:17)
[2021-03-30] MEDS ORDERED: Aspirin 325 MG TAB PO SCH (07:17)
[2021-03-30] MEDS: HYDROcodone/Acetaminophen 5/325 mg Tablet PO PRN ×2 (07:49→20:33)
[2021-03-30] MEDS: Amlodipine 5 MG TAB PO SCH (07:50)
[2021-03-30] MEDS: Famotidine 20 MG TAB PO SCH ×2 (07:50→20:33)
[2021-03-30] MEDS: Carvedilol 3.125 MG TAB PO SCH ×2 (07:50→18:01)
[2021-03-30] MEDS: Lactated Ringer's 1,000 ML IV SCH ×3 (07:57→23:38)
[2021-03-30 08:07] LABS: PTT 158.6 sec (22.9-36.1)
[2021-03-30] MEDS ORDERED: Iopamidol 370 76% 50 ML VIAL FS ONE (08:46)
[2021-03-30] MEDS: Clopidogrel Bisulfate 75 MG TAB PO SCH (09:18)
[2021-03-30] MEDS ORDERED: Iopamidol-370 76% 500 ML 1 ML ONE (09:19)
[2021-03-30 09:40] VITALS: BMI 28.4
[2021-03-30] MEDS ORDERED: Midazolam HCl 2 mg/2 ml Vial ONE (10:57)
[2021-03-30] MEDS ORDERED: Fentanyl 100 MCG/2 ML VIAL ONE (10:57)
[2021-03-30] MEDS ORDERED: Protamine Sulfate 50 MG/5 ML VIAL ONE (13:13)
[2021-03-30] MEDS ORDERED: hydrALAZINE 20 MG/ML VIAL ONE (13:49)
[2021-03-30] MEDS ORDERED: hydrALAZINE 20 MG/ML VIAL SLOW IVP SCH (17:30)
[2021-03-30] MEDS: hydrALAZINE 20 MG/ML VIAL SLOW IVP PRN (20:42)
[2021-03-31] MEDS: Lactated Ringer's 1,000 ML IV SCH (03:31)
[2021-03-31] MEDS: hydrALAZINE 20 MG/ML VIAL SLOW IVP PRN ×2 (05:37→11:51)
[2021-03-31] MEDS: HYDROcodone/Acetaminophen 5/325 mg Tablet PO PRN ×2 (06:24→10:51)
[2021-03-31] MEDS: Amlodipine 5 MG TAB PO SCH (08:54)
[2021-03-31] MEDS: Carvedilol 6.25 MG TAB PO SCH ×2 (08:55→16:52)
[2021-03-31] MEDS: Clopidogrel Bisulfate 75 MG TAB PO SCH (08:55)
[2021-03-31] MEDS: Famotidine 20 MG TAB PO SCH (08:56)
[2021-03-31] MEDS ORDERED: Aspirin 81 mg Enteric Coated Tablet PO SCH (09:00)
[2021-03-31] MEDS ORDERED: Lisinopril 5 MG TAB PO SCH (09:00)
[2021-03-31 15:55] VITALS: TEMP 98.5
[2021-03-31 16:53] VITALS: BP 170/98
[2021-03-31] MEDS ORDERED: Lisinopril 10 MG TAB PO SCH (21:00)
== END 2021-03-31 16:40 | disposition home or self-care (01) | DRG 254 ==
LOC: ERS 01:58 → SURG A 05:18
PROVIDERS: ADMIT Thoracic Surgery (Cardiothoracic Vascular Surgery); ATTEND Thoracic Surgery (Cardiothoracic Vascular Surgery)
PROC: 047L3Z1 Dilation of Left Femoral Artery using Drug-Coated Balloon, Percutaneous Approach (ICD-10-PCS; principal; 2021-03-30)
PROC: B41G1ZZ Fluoroscopy of Left Lower Extremity Arteries using Low Osmolar Contrast (ICD-10-PCS; 2021-03-30)
DX: T82.898A Other specified complication of vascular prosthetic devices, implants and grafts, initial encounter (principal); I77.9 Disorder of arteries and arterioles, unspecified; I10 Essential (primary) hypertension; Z20.822 Contact with and (suspected) exposure to COVID-19; Z86.73 Personal history of transient ischemic attack (TIA), and cerebral infarction without residual deficits; Z79.82 Long term (current) use of aspirin; Z79.899 Other long term (current) drug therapy; Y83.1 Surgical operation with implant of artificial internal device as the cause of abnormal reaction of the patient, or of later complication, without mention of misadventure at the time of the procedure
CPT/HCPCS: 36247; 36415; 37224; 71045; 75635; 75710; 76942; 80053; 85025; 85347; 85610; 85730; 93005; 93923; 96365; 96366; 96375; 96376; 99152; 99153; C2623; J0360; J1644; J2250; J2270; J2405; J2720; J3010; Q9967; U0002; U0005

== ENCOUNTER 2021-04-06 12:06 | Outpatient (CLI) | payer OTHER | END 2021-04-06 12:07 | disposition home or self-care (01) | LOC: BICRAD 12:06 | PROVIDERS: ATTEND Nurse Practitioner Family | DX: M79.672 Pain in left foot (principal) ==

== ENCOUNTER 2022-09-18 16:38 | Emergency (ER) | payer OTHER ==
[~2022-09-18 16:38] MED LIST changes: +Iopamidol-370 76% 500 ML 1 ML ONE; -Magnevist 469MG/ML 20 ML VIAL ONE
[2022-09-18] MEDS ORDERED: Morphine 4 MG/ML VIAL ONE (17:13)
[2022-09-18] MEDS ORDERED: Ondansetron PF 4 MG/2 ML Vial ONE (17:13)
[2022-09-18 17:19] LABS: #Eosinphils 0.2 thou/uL (0.0-0.7); #Lymphocytes 3.4 thou/uL (1.20-3.40); #Monocytes 0.6 thou/uL (0.11-0.59); #Neutrophils 4.8 thou/uL (1.40-6.50); %Lymphocytes 37.9 % (21.0-51.0); %Monocytes 6.7 % (0.0-10.0); %Neutrophils 53.5 % (42.0-75.0); Hemoglobin 16.4 g/dL (14.0-18.0); Mean Corpuscular HGB CONC 33.2 g/dL (32.0-36.0); Mean Corpuscular Hemoglobin 29.1 pg (27.0-31.0); Mean Corpuscular Volume 87.6 fl (78.0-98.0); Mean Platelet Volume 9.8 fL (7.4-10.4); Platelet Count 201 10x3/uL (130-400); RBC Distribution Width 13.6 % (11.5-14.5); Red Blood Cell (RBC) Count 5.65 mill/uL (4.70-6.10)
[2022-09-18 17:53] LABS: ALT (SGPT) 13 U/L (8-55); AST (SGOT) 12 U/L (5-34); Albumin 3.8 g/dL (3.5-5.0); Alkaline Phosphatase 85 U/L (40-110); Anion Gap 15 mmol/L (10-20); BUN (Urea Nitrogen) 13 mg/dL (8.9-20.6); Bilirubin, Total 0.3 mg/dL (0.2-1.2); Calc. Creatinine Clearance 0 mL/min (70-130); Calcium 9.7 mg/dL (7.8-10.44); Carbon Dioxide 23 mmol/L (22-29); Chloride 101 mmol/L (98-107); Estimated GFR 60; Globulin 3.3 g/dL (2.4-3.5); Glucose 100 mg/dL (70-105); Lipase 36 U/L (8-78); Potassium 3.8 mmol/L (3.5-5.1); Protein, Total 7.1 g/dL (6.0-8.3); Sodium 135 mmol/L (136-145)
[2022-09-18] MEDS ORDERED: Mag-Al 1200 mg/1200 mg/30 ML UDCUP ONE (18:55)
[2022-09-18] MEDS ORDERED: Dicyclomine 20 MG/2 ML VIAL ONE (18:55)
[2022-09-18] MEDS ORDERED: Lidocaine Viscous Sol 2% 15 ml UD Cup ONE (18:55)
[2022-09-18 20:48] LABS: Bacteria/HPF None Seen HPF (None Seen); Bilirubin Negative (Negative); Blood, Urine Negative (Negative); Clarity Clear (Clear); Glucose, Urine (Dipstick) Normal (Negative); Ketone, Urine Negative (Negative); Leukocyte 25 Leu/uL (Negative); Nitrite 1+ (Negative); Protein, Urine (Dipstick) 30 mg/dL (Neg-Trace); RBC/HPF 0-3 HPF (0-3); Squamous Epithelial None Seen HPF (0-3); Urobilinogen Normal mg/dL (Less than 2)
[2022-09-18 20:51] LABS: Specific Gravity, Urine 1.045 (1.002-1.036)
== END 2022-09-18 21:23 | disposition home or self-care (01) ==
LOC: ERS 16:38
DX: K80.20 Calculus of gallbladder without cholecystitis without obstruction (principal); K76.0 Fatty (change of) liver, not elsewhere classified; N39.0 Urinary tract infection, site not specified; I10 Essential (primary) hypertension; Z87.891 Personal history of nicotine dependence; Z79.899 Other long term (current) drug therapy; Z79.82 Long term (current) use of aspirin
CPT/HCPCS: 36415; 74177; 76705; 80053; 81003; 81015; 83605; 83690; 84484; 85025; 87077; 87086; 87186; 93005; 96372; 96374; 96375; J2270; J2405; Q9967

== ENCOUNTER 2022-10-09 13:36 | Inpatient (IN) | payer OTHER ==
[2022-10-09] MEDS ORDERED: Ondansetron PF 4 MG/2 ML Vial ONE (14:04)
[2022-10-09] MEDS ORDERED: Pantoprazole 40 MG VIAL ONE (14:05)
[2022-10-09] MEDS ORDERED: Morphine 4 MG/ML VIAL ONE (14:05)
[2022-10-09 14:18] LABS: #Eosinphils 0.1 thou/uL (0.0-0.7); #Lymphocytes 2.7 thou/uL (1.20-3.40); #Monocytes 0.5 thou/uL (0.11-0.59); %Basophils 0.1 % (0.0-1.0); %Eosinophils 0.6 % (0.0-10.0); %Lymphocytes 29.5 % (21.0-51.0); %Monocytes 5.3 % (0.0-10.0); %Neutrophils 64.5 % (42.0-75.0); Hemoglobin 10.7 g/dL (14.0-18.0); Mean Corpuscular HGB CONC 33.7 g/dL (32.0-36.0); Mean Corpuscular Hemoglobin 29.2 pg (27.0-31.0); Mean Corpuscular Volume 86.7 fl (78.0-98.0); Mean Platelet Volume 8.8 fL (7.4-10.4); Platelet Count 181 10x3/uL (130-400); RBC Distribution Width 13.8 % (11.5-14.5); Red Blood Cell (RBC) Count 3.68 mill/uL (4.70-6.10); White Blood Cell (WBC) Count 9.2 10x3/uL (4.8-10.8)
[2022-10-09 14:30] LABS: PTT 28.9 sec (22.9-36.1); Prothrombin Time 13.8 sec (12.0-14.7)
[2022-10-09 14:37] LABS: ALT (SGPT) 9 U/L (8-55); AST (SGOT) 15 U/L (5-34); Albumin 3.6 g/dL (3.5-5.0); Alkaline Phosphatase 50 U/L (40-110); Anion Gap 17 mmol/L (10-20); BUN (Urea Nitrogen) 51 mg/dL (8.9-20.6); Bilirubin, Total 0.3 mg/dL (0.2-1.2); Calc. Creatinine Clearance 0 mL/min (70-130); Calcium 8.8 mg/dL (7.8-10.44); Carbon Dioxide 20 mmol/L (22-29); Chloride 108 mmol/L (98-107); Estimated GFR 50; Glucose 112 mg/dL (70-105); Lipase 29 U/L (8-78); Potassium 4.6 mmol/L (3.5-5.1); Protein, Total 6.6 g/dL (6.0-8.3); Sodium 140 mmol/L (136-145)
[2022-10-09] MEDS ORDERED: Pantoprazole 80 MG, Admixture Fee 1 EACH in Sodium Chloride 0.9% 100 ML IVPB SCH (15:00)
[2022-10-09] MEDS ORDERED: Ondansetron PF 4 MG/2 ML Vial IVP PRN (16:01)
[2022-10-09] MEDS ORDERED: Acetaminophen 325 MG TAB PO PRN (16:01)
[2022-10-09 18:00] VITALS: BMI 29.3
[2022-10-09] MEDS: Sodium Chloride 0.9% 1,000 ML IV SCH (18:13)
[2022-10-09] MEDS: Pantoprazole 40 MG VIAL IVP SCH (20:10)
[2022-10-10] MEDS: Sodium Chloride 0.9% 1,000 ML IV SCH ×3 (01:00→21:30)
[2022-10-10 05:12] LABS: #Eosinphils 0.2 thou/uL (0.0-0.7); #Lymphocytes 2.6 thou/uL (1.20-3.40); #Monocytes 0.5 thou/uL (0.11-0.59); #Neutrophils 3.2 thou/uL (1.40-6.50); %Basophils 0.2 % (0.0-1.0); %Eosinophils 3.5 % (0.0-10.0); %Lymphocytes 39.4 % (21.0-51.0); %Monocytes 7.5 % (0.0-10.0); %Neutrophils 49.5 % (42.0-75.0); Hemoglobin 9.2 g/dL (14.0-18.0); Mean Platelet Volume 8.9 fL (7.4-10.4); Platelet Count 165 10x3/uL (130-400); RBC Distribution Width 14.1 % (11.5-14.5); Red Blood Cell (RBC) Count 3.08 mill/uL (4.70-6.10); White Blood Cell (WBC) Count 6.5 10x3/uL (4.8-10.8)
[2022-10-10 05:23] LABS: Anion Gap 8 mmol/L (10-20); BUN (Urea Nitrogen) 27 mg/dL (8.9-20.6); Calc. Creatinine Clearance 125 mL/min (70-130); Calcium 7.9 mg/dL (7.8-10.44); Carbon Dioxide 22 mmol/L (22-29); Chloride 114 mmol/L (98-107); Estimated GFR 102; Glucose 91 mg/dL (70-105); Potassium 4.2 mmol/L (3.5-5.1); Sodium 140 mmol/L (136-145)
[2022-10-10] MEDS: Pantoprazole 40 MG VIAL IVP SCH ×2 (08:05→21:29)
[2022-10-10] MEDS ORDERED: GoLYTELY 4,000 ml Bottle PO SCH (09:00)
[2022-10-10] MEDS: Carvedilol 25 MG TAB PO SCH (21:29)
[2022-10-10] MEDS: Atorvastatin Calcium 40 MG TAB PO SCH (21:29)
[2022-10-11] MEDS: Sodium Chloride 0.9% 1,000 ML IV SCH (07:40)
[2022-10-11] MEDS: Pantoprazole 40 MG VIAL IVP SCH (07:41)
[2022-10-11] MEDS: Carvedilol 25 MG TAB PO SCH ×2 (07:41→21:45)
[2022-10-11 09:34] LABS: Hemoglobin 8.6 g/dL (14.0-18.0); Mean Corpuscular HGB CONC 33.6 g/dL (32.0-36.0); Mean Corpuscular Hemoglobin 29.7 pg (27.0-31.0); Mean Corpuscular Volume 88.3 fl (78.0-98.0); Platelet Count 177 10x3/uL (130-400)
[2022-10-11] MEDS ORDERED: Lidocaine 1% PF 5 ML VIAL ONE (10:59)
[2022-10-11] MEDS ORDERED: PROPOFOL 200 MG/20 ML VIAL ONE (10:59)
[2022-10-11] MEDS ORDERED: Glycopyrrolate 0.2 MG/ML 5 ML SYRINGE ONE (10:59)
[2022-10-11] MEDS ORDERED: EPINEPHrine 1 MG/10 ML Abboject SYRINGE ONE (10:59)
[2022-10-11] MEDS ORDERED: Pantoprazole 80 MG in Sodium Chloride 0.9% 100 ML IVPB SCH (14:15)
[2022-10-11 16:59] LABS: Hemoglobin 9.3 g/dL (14.0-18.0)
[2022-10-11] MEDS: Pantoprazole 80 MG in Sodium Chloride 0.9% 100 ML IVPB SCH (17:36)
[2022-10-11] MEDS: Atorvastatin Calcium 40 MG TAB PO SCH (21:45)
[2022-10-12] MEDS: Pantoprazole 80 MG in Sodium Chloride 0.9% 100 ML IVPB SCH (02:49)
[2022-10-12 05:09] LABS: Anion Gap 10 mmol/L (10-20); BUN (Urea Nitrogen) 8 mg/dL (8.9-20.6); Calc. Creatinine Clearance 142 mL/min (70-130); Calcium 8.4 mg/dL (7.8-10.44); Carbon Dioxide 22 mmol/L (22-29); Chloride 109 mmol/L (98-107); Estimated GFR 109; Glucose 100 mg/dL (70-105); Potassium 3.6 mmol/L (3.5-5.1); Sodium 137 mmol/L (136-145)
[2022-10-12 05:11] LABS: Mean Corpuscular HGB CONC 34.2 g/dL (32.0-36.0); Mean Corpuscular Hemoglobin 29.7 pg (27.0-31.0); Mean Corpuscular Volume 86.8 fl (78.0-98.0); Mean Platelet Volume 9.2 fL (7.4-10.4); Platelet Count 183 10x3/uL (130-400); RBC Distribution Width 14.2 % (11.5-14.5); Red Blood Cell (RBC) Count 3.02 mill/uL (4.70-6.10); White Blood Cell (WBC) Count 7.3 10x3/uL (4.8-10.8)
[2022-10-12] MEDS ORDERED: Lisinopril 20 MG TAB PO SCH (09:00)
[2022-10-12] MEDS ORDERED: Amlodipine 10 MG TAB PO SCH (09:00)
[2022-10-12 09:10] VITALS: TEMP 97.1
[2022-10-12] MEDS: Carvedilol 25 MG TAB PO SCH (09:18)
[2022-10-12 14:41] VITALS: BP 163/90
== END 2022-10-12 15:42 | disposition left against medical advice (07) | DRG 378 ==
LOC: ERS 13:36 → ERHOLD 15:25 → 2SW 17:51
PROVIDERS: ADMIT Internal Medicine; ATTEND Internal Medicine
PROC: 0W3P8ZZ Control Bleeding in Gastrointestinal Tract, Via Natural or Artificial Opening Endoscopic (ICD-10-PCS; principal; 2022-10-11)
PROC: 0DB68ZX Excision of Stomach, Via Natural or Artificial Opening Endoscopic, Diagnostic (ICD-10-PCS; 2022-10-11)
PROC: 0DB78ZX Excision of Stomach, Pylorus, Via Natural or Artificial Opening Endoscopic, Diagnostic (ICD-10-PCS; 2022-10-11)
PROC: 0DBK8ZZ Excision of Ascending Colon, Via Natural or Artificial Opening Endoscopic (ICD-10-PCS; 2022-10-11)
PROC: 0DBL8ZZ Excision of Transverse Colon, Via Natural or Artificial Opening Endoscopic (ICD-10-PCS; 2022-10-11)
PROC: 0DBN8ZZ Excision of Sigmoid Colon, Via Natural or Artificial Opening Endoscopic (ICD-10-PCS; 2022-10-11)
PROC: 0DBM8ZZ Excision of Descending Colon, Via Natural or Artificial Opening Endoscopic (ICD-10-PCS; 2022-10-11)
DX: K25.4 Chronic or unspecified gastric ulcer with hemorrhage (principal); D62 Acute posthemorrhagic anemia; N17.9 Acute kidney failure, unspecified; Z20.822 Contact with and (suspected) exposure to COVID-19; I10 Essential (primary) hypertension; I73.9 Peripheral vascular disease, unspecified; E86.0 Dehydration; K57.30 Diverticulosis of large intestine without perforation or abscess without bleeding; K63.5 Polyp of colon; Z91.199 Patient's noncompliance with other medical treatment and regimen due to unspecified reason; Z79.82 Long term (current) use of aspirin; Z79.899 Other long term (current) drug therapy
CPT/HCPCS: 36415; 74177; 80048; 80053; 82274; 83605; 83690; 85025; 85027; 85610; 85730; 86850; 86900; 86901; 88305; 88342; 93005; 94760; 96374; 96375; C9113; J0171; J2270; J2405; J2704; J3490; J7050; Q9967; U0003; U0005

== ENCOUNTER 2023-09-10 09:05 | Emergency (ER) | payer OTHER, SELFPAY ==
[2023-09-10 09:51] LABS: #Monocytes 0.5 thou/uL (0.11-0.59); #Neutrophils 4.4 thou/uL (1.40-6.50); %Basophils 0.6 % (0.0-1.0); %Lymphocytes 21.4 % (21.0-51.0); %Monocytes 7.9 % (0.0-10.0); %Neutrophils 69.9 % (42.0-75.0); Hematocrit 49.7 % (42.0-52.0); Hemoglobin 16.4 g/dL (14.0-18.0); Mean Corpuscular Hemoglobin 28.1 pg (27.0-31.0); Mean Corpuscular Volume 85.1 fl (78.0-98.0); Mean Platelet Volume 11.7 fL (7.4-10.4); Platelet Count 189 10x3/uL (130-400); RBC Distribution Width 15.9 % (11.5-14.5); Red Blood Cell (RBC) Count 5.84 mill/uL (4.70-6.10); White Blood Cell (WBC) Count 6.3 10x3/uL (4.8-10.8)
[2023-09-10 10:13] LABS: ALT (SGPT) 17 U/L (8-55); AST (SGOT) 25 U/L (5-34); Albumin 3.9 g/dL (3.5-5.0); Alkaline Phosphatase 54 U/L (40-110); Anion Gap 13 mmol/L (10-20); BUN (Urea Nitrogen) 20 mg/dL (8.9-20.6); Bilirubin, Total 0.3 mg/dL (0.2-1.2); Calc. Creatinine Clearance 0 mL/min (70-130); Calcium 9.3 mg/dL (7.8-10.44); Carbon Dioxide 28 mmol/L (22-29); Chloride 103 mmol/L (98-107); Estimated GFR 51; Globulin 3.7 g/dL (2.4-3.5); Glucose 96 mg/dL (70-105); Lipase 25 U/L (8-78); Potassium 4.1 mmol/L (3.5-5.1); Protein, Total 7.6 g/dL (6.0-8.3); Sodium 140 mmol/L (136-145)
[2023-09-10 10:29] LABS: SARS-CoV-2 NAA Rapid Test Not Detected (NotDetected)
== END 2023-09-10 11:16 | disposition home or self-care (01) ==
LOC: ERS 09:05
DX: J10.1 Influenza due to other identified influenza virus with other respiratory manifestations (principal); Z87.891 Personal history of nicotine dependence; Z86.718 Personal history of other venous thrombosis and embolism
CPT/HCPCS: 36415; 80053; 82274; 83690; 85025; 99283

== ENCOUNTER 2023-10-22 19:55 | Inpatient (IN) | payer OTHER, SELFPAY ==
[~2023-10-22 19:55] MED LIST changes: -Iopamidol-370 76% 500 ML 1 ML ONE; +Iopamidol-370 76% 500 ML MDV (1 ML CHARGE) ONE
[2023-10-22] MEDS ORDERED: Morphine 4 MG/ML VIAL ONE (20:30)
[2023-10-22 20:51] LABS: #Eosinphils 0.2 thou/uL (0.0-0.7); #Monocytes 0.7 thou/uL (0.11-0.59); %Basophils 0.5 % (0.0-1.0); %Eosinophils 2.4 % (0.0-10.0); %Lymphocytes 36.5 % (21.0-51.0); %Monocytes 9.2 % (0.0-10.0); %Neutrophils 51.1 % (42.0-75.0); Hematocrit 48.4 % (42.0-52.0); Hemoglobin 16.4 g/dL (14.0-18.0); Mean Corpuscular HGB CONC 33.9 g/dL (32.0-36.0); Mean Corpuscular Volume 82.6 fl (78.0-98.0); Platelet Count 199 10x3/uL (130-400); RBC Distribution Width 16.8 % (11.5-14.5); Red Blood Cell (RBC) Count 5.86 mill/uL (4.70-6.10); White Blood Cell (WBC) Count 7.8 10x3/uL (4.8-10.8)
[2023-10-22 21:14] LABS: ALT (SGPT) 15 U/L (8-55); AST (SGOT) 23 U/L (5-34); Albumin 4.5 g/dL (3.5-5.0); Alkaline Phosphatase 68 U/L (40-110); Anion Gap 12 mmol/L (10-20); BUN (Urea Nitrogen) 23 mg/dL (8.9-20.6); Bilirubin, Total 0.6 mg/dL (0.2-1.2); Calc. Creatinine Clearance 0 mL/min (70-130); Calcium 9.4 mg/dL (7.8-10.44); Carbon Dioxide 26 mmol/L (22-29); Chloride 100 mmol/L (98-107); Estimated GFR 56; Globulin 3.5 g/dL (2.4-3.5); Glucose 97 mg/dL (70-105); Potassium 3.4 mmol/L (3.5-5.1); Sodium 135 mmol/L (136-145)
[2023-10-22 21:16] LABS: INR-International Normal Ratio 1.1; Prothrombin Time 13.8 sec (12.0-14.7)
[2023-10-22 21:17] LABS: PTT 30.5 sec (22.9-36.1)
[2023-10-22 21:24] LABS: Troponin I 0.017 ng/mL (< 0.028)
[2023-10-22] MEDS ORDERED: Ondansetron PF 4 MG/2 ML Vial IVP PRN (22:30)
[2023-10-22] MEDS ORDERED: Morphine 2 MG/ML VIAL SLOW IVP PRN (22:30)
[2023-10-22] MEDS ORDERED: Ondansetron ODT 4 MG TAB PO PRN (22:30)
[2023-10-22 23:08] VITALS: BMI 30.6
[2023-10-22] MEDS: Sodium Chloride 0.9% 1,000 ML IV SCH (23:19)
[2023-10-23] MEDS: Morphine 4 MG/ML VIAL SLOW IVP PRN ×3 (00:09→20:14)
[2023-10-23 05:23] LABS: #Eosinphils 0.3 thou/uL (0.0-0.7); #Monocytes 0.5 thou/uL (0.11-0.59); #Neutrophils 1.9 thou/uL (1.40-6.50); %Basophils 0.6 % (0.0-1.0); %Eosinophils 5.5 % (0.0-10.0); %Lymphocytes 47.4 % (21.0-51.0); %Monocytes 9.3 % (0.0-10.0); Hematocrit 42.2 % (42.0-52.0); Hemoglobin 14.2 g/dL (14.0-18.0); Mean Corpuscular HGB CONC 33.6 g/dL (32.0-36.0); Mean Corpuscular Hemoglobin 28.3 pg (27.0-31.0); Mean Corpuscular Volume 84.1 fl (78.0-98.0); Mean Platelet Volume 10.4 fL (7.4-10.4); Platelet Count 171 10x3/uL (130-400); RBC Distribution Width 16.6 % (11.5-14.5); Red Blood Cell (RBC) Count 5.02 mill/uL (4.70-6.10); White Blood Cell (WBC) Count 5.1 10x3/uL (4.8-10.8)
[2023-10-23 05:57] LABS: Anion Gap 11 mmol/L (10-20); BUN (Urea Nitrogen) 17 mg/dL (8.9-20.6); Calc. Creatinine Clearance 103 mL/min (70-130); Calcium 8.3 mg/dL (7.8-10.44); Carbon Dioxide 22 mmol/L (22-29); Chloride 107 mmol/L (98-107); Estimated GFR 83; Glucose 86 mg/dL (70-105); Potassium 3.4 mmol/L (3.5-5.1); Sodium 137 mmol/L (136-145)
[2023-10-23] MEDS: Sodium Chloride 0.9% 1,000 ML IV SCH (08:26)
[2023-10-23] MEDS: Atorvastatin Calcium 40 MG TAB PO SCH (08:27)
[2023-10-23] MEDS ORDERED: FLU VACC QS2023-24(6MOS UP)/PF 60 MCG/0.5 ML SYRINGE IM ONE (09:00)
[2023-10-23] MEDS ORDERED: Iopamidol 370 76% 100 ML VIAL ONE (09:57)
[2023-10-23] MEDS ORDERED: fentaNYL 50 mcg/mL 1 mL Vial ONE (10:40)
[2023-10-23] MEDS ORDERED: Midazolam HCl 2 mg/2 ml Vial ONE (10:41)
[2023-10-23] MEDS ORDERED: Heparin 10,000 UNITS/ 10 ML VIAL ONE (11:17)
[2023-10-23] MEDS ORDERED: Aspirin 81 mg Enteric Coated Tablet PO SCH (12:15)
[2023-10-23] MEDS ORDERED: hydrALAZINE 20 MG/ML VIAL ONE (12:17)
[2023-10-23] MEDS ORDERED: Aspirin 81 mg Enteric Coated Tablet ONE (13:25)
[2023-10-23] MEDS: Potassium Chloride 20 MEQ in Premix 1 BAG IVPB SCH ×3 (14:58→17:45)
[2023-10-23] MEDS ORDERED: HYDROcodone/Acetaminophen 5/325 mg Tablet PO PRN (16:45)
[2023-10-24] MEDS: hydrALAZINE 20 MG/ML VIAL SLOW IVP PRN ×3 (00:27→09:25)
[2023-10-24 04:20] VITALS: TEMP 98.7
[2023-10-24 05:29] LABS: #Eosinphils 0.2 thou/uL (0.0-0.7); #Monocytes 0.7 thou/uL (0.11-0.59); #Neutrophils 5.4 thou/uL (1.40-6.50); %Basophils 0.5 % (0.0-1.0); %Eosinophils 1.9 % (0.0-10.0); %Lymphocytes 25.6 % (21.0-51.0); %Monocytes 7.7 % (0.0-10.0); %Neutrophils 64.1 % (42.0-75.0); Hematocrit 43.3 % (42.0-52.0); Hemoglobin 14.7 g/dL (14.0-18.0); Mean Corpuscular HGB CONC 33.9 g/dL (32.0-36.0); Mean Corpuscular Hemoglobin 28.4 pg (27.0-31.0); Mean Corpuscular Volume 83.8 fl (78.0-98.0); Mean Platelet Volume 11.2 fL (7.4-10.4); Platelet Count 196 10x3/uL (130-400); RBC Distribution Width 16.4 % (11.5-14.5); Red Blood Cell (RBC) Count 5.17 mill/uL (4.70-6.10); White Blood Cell (WBC) Count 8.4 10x3/uL (4.8-10.8)
[2023-10-24 06:18] LABS: Anion Gap 11 mmol/L (10-20); BUN (Urea Nitrogen) 10 mg/dL (8.9-20.6); Calc. Creatinine Clearance 129 mL/min (70-130); Calcium 8.4 mg/dL (7.8-10.44); Carbon Dioxide 21 mmol/L (22-29); Chloride 108 mmol/L (98-107); Estimated GFR 106; Glucose 92 mg/dL (70-105); Potassium 3.9 mmol/L (3.5-5.1); Sodium 136 mmol/L (136-145)
[2023-10-24] MEDS: Atorvastatin Calcium 40 MG TAB PO SCH (07:24)
[2023-10-24 07:50] VITALS: BP 154/101
[2023-10-24] MEDS ORDERED: Clopidogrel Bisulfate 75 MG TAB PO SCH (09:00)
[2023-10-24] MEDS ORDERED: Amlodipine 10 MG TAB PO SCH (09:00)
[2023-10-24] MEDS ORDERED: Aspirin 81 mg Enteric Coated Tablet PO SCH (09:00)
== END 2023-10-24 10:39 | disposition home or self-care (01) | DRG 272 ==
LOC: ERS 19:55 → SUATTDRO 19:55 → T4-A 22:16 → OBSVTOIN 10-24 10:38
PROVIDERS: ADMIT Family Medicine; ATTEND Family Medicine
PROC: 04CN3ZZ Extirpation of Matter from Left Popliteal Artery, Percutaneous Approach (ICD-10-PCS; principal; 2023-10-23)
PROC: 04CL3ZZ Extirpation of Matter from Left Femoral Artery, Percutaneous Approach (ICD-10-PCS; 2023-10-23)
PROC: 047L3EZ Dilation of Left Femoral Artery with Two Intraluminal Devices, Percutaneous Approach (ICD-10-PCS; 2023-10-23)
DX: I70.202 Unspecified atherosclerosis of native arteries of extremities, left leg (principal); E78.5 Hyperlipidemia, unspecified; I10 Essential (primary) hypertension; Z79.82 Long term (current) use of aspirin; Z79.899 Other long term (current) drug therapy; Z87.891 Personal history of nicotine dependence; Z86.73 Personal history of transient ischemic attack (TIA), and cerebral infarction without residual deficits; Z86.718 Personal history of other venous thrombosis and embolism
CPT/HCPCS: 36247; 36415; 37226; 75635; 80048; 80053; 84484; 85025; 85347; 85610; 85730; 93005; 96374; 96375; 96376; 99152; 99153; C1757; C1760; C1769; C1876; C1887; C1894; C2623; G0378; J0360; J1644; J2250; J2270; J3010; J3480; J7050; Q9967

== ENCOUNTER 2025-06-24 17:30 | Inpatient (IN) | payer OTHER, SELFPAY ==
[2025-06-24 19:41] LABS: #Basophils 0.06 10x3/uL (0.0-0.2); #Eosinophils 0.29 10x3/uL (0.0-0.7); #Monocytes 0.50 10x3/uL (0.11-0.59); #Neutrophils 2.69 10x3/uL (1.40-6.50); %Basophils 1.0 % (0.0-1.0); %Eosinophils 4.8 % (0.0-10.0); %Lymphocytes 40.9 % (21.0-51.0); %Monocytes 8.3 % (0.0-10.0); %Neutrophils 44.7 % (42.0-75.0); Hematocrit 43.1 % (42.0-52.0); Hemoglobin 14.1 g/dL (14.0-18.0); Mean Corpuscular Hemoglobin 27.6 pg (27.0-31.0); Mean Corpuscular Volume 84.5 fL (78.0-98.0); Platelet Count 193 10x3/uL (130-400); Red Blood Cell (RBC) Count 5.10 mill/uL (4.70-6.10); White Blood Cell (WBC) Count 6.02 10x3/uL (4.8-10.8)
[2025-06-24 20:06] LABS: ALT (SGPT) 8 U/L (Less than 45); AST (SGOT) 21 U/L (11-34); Acetaminophen Less than 10 mcg/mL (Less than 10); Albumin 3.8 g/dL (3.1-4.5); Alkaline Phosphatase 75 U/L (40-110); Anion Gap 15 mmol/L (10-20); BUN (Urea Nitrogen) 22 mg/dL (8.9-20.6); Bilirubin, Total 0.3 mg/dL (0.3-1.2); Calc. Creatinine Clearance 0 mL/min (70-130); Calcium 9.2 mg/dL (7.8-10.44); Carbon Dioxide 22 mmol/L (22-29); Chloride 112 mmol/L (98-107); Globulin 2.7 g/dL (2.4-3.5); Glucose 93 mg/dL (70-105); Potassium 4.3 mmol/L (3.5-5.1); Salicylate Less than 8.0 mg/dL (Less than 8.0); Sodium 145 mmol/L (136-145)
[2025-06-24] MEDS ORDERED: Aspirin Chewable 81 MG TAB ONE (20:25)
[2025-06-24 20:26] LABS: INR-International Normal Ratio 1.0; Prothrombin Time 13.3 sec (12.0-14.7)
[2025-06-24 20:27] LABS: PTT 32.4 sec (22.9-36.1)
[2025-06-24] MEDS ORDERED: Senokot S 8.6-50 MG TAB PO PRN (20:32)
[2025-06-24] MEDS ORDERED: Melatonin 3 MG TAB PO PRN (20:32)
[2025-06-24] MEDS ORDERED: Calcium Carbonate 500 MG ChewTAB PO PRN (20:32)
[2025-06-24] MEDS ORDERED: Ondansetron PF 4 MG/2 ML Vial IVP PRN (20:32)
[2025-06-25 04:22] LABS: #Basophils 0.05 10x3/uL (0.0-0.2); #Eosinophils 0.34 10x3/uL (0.0-0.7); #Monocytes 0.51 10x3/uL (0.11-0.59); #Neutrophils 2.21 10x3/uL (1.40-6.50); %Basophils 0.9 % (0.0-1.0); %Eosinophils 6.2 % (0.0-10.0); %Lymphocytes 43.4 % (21.0-51.0); %Monocytes 9.3 % (0.0-10.0); %Neutrophils 40.0 % (42.0-75.0); Hematocrit 43.9 % (42.0-52.0); Hemoglobin 14.2 g/dL (14.0-18.0); Mean Corpuscular Hemoglobin 27.6 pg (27.0-31.0); Mean Corpuscular Volume 85.2 fL (78.0-98.0); Platelet Count 175 10x3/uL (130-400); Red Blood Cell (RBC) Count 5.15 mill/uL (4.70-6.10); White Blood Cell (WBC) Count 5.51 10x3/uL (4.8-10.8)
[2025-06-25 04:36] LABS: Anion Gap 13 mmol/L (10-20); BUN (Urea Nitrogen) 16 mg/dL (8.9-20.6); Calc. Creatinine Clearance 93 mL/min (70-130); Calcium 8.9 mg/dL (7.8-10.44); Carbon Dioxide 24 mmol/L (22-29); Cardiac Risk 4.3 (Less than 4.5); Chloride 110 mmol/L (98-107); Cholesterol 168 mg/dl (< 200 Desired); Glucose 102 mg/dL (70-105); HDL Cholesterol 39 mg/dL (>60 Neg Risk); LDL Cholesterol, Calculated 110 mg/dL; Potassium 3.9 mmol/L (3.5-5.1); Sodium 143 mmol/L (136-145); Triglycerides 96 mg/dL (Less than 150)
[2025-06-25] MEDS: Aspirin 81 mg Enteric Coated Tablet PO SCH (09:19)
[2025-06-25] MEDS: Enoxaparin 40 MG (0.4 mL) SYRINGE SC SCH (09:19)
[2025-06-25] MEDS: hydrALAZINE 20 MG/ML VIAL SLOW IVP PRN (09:54)
[2025-06-25 12:27] LABS: Cocaine Metabolite Screen Negative (Negative); THC/Cannabinoid Screen PRELIM POSITIVE (Negative); Tricyclic Screen Negative (Negative)
[2025-06-25 13:36] LABS: D-Dimer Test 2.18 mcg/mL (0.27-0.43)
[2025-06-25 13:39] LABS: INR-International Normal Ratio 1.0; Prothrombin Time 13.2 sec (12.0-14.7)
[2025-06-25 13:40] LABS: PTT 34.6 sec (22.9-36.1)
[2025-06-25] MEDS: Acetaminophen 325 MG TAB PO PRN (19:13)
[2025-06-26 04:10] LABS: #Basophils 0.08 10x3/uL (0.0-0.2); #Eosinophils 0.18 10x3/uL (0.0-0.7); #Monocytes 0.58 10x3/uL (0.11-0.59); #Neutrophils 3.08 10x3/uL (1.40-6.50); %Basophils 1.3 % (0.0-1.0); %Eosinophils 2.8 % (0.0-10.0); %Lymphocytes 37.8 % (21.0-51.0); %Monocytes 9.2 % (0.0-10.0); %Neutrophils 48.7 % (42.0-75.0); Hematocrit 47.6 % (42.0-52.0); Hemoglobin 16.1 g/dL (14.0-18.0); Mean Corpuscular Hemoglobin 27.9 pg (27.0-31.0); Mean Corpuscular Volume 82.5 fL (78.0-98.0); Platelet Count 199 10x3/uL (130-400); Red Blood Cell (RBC) Count 5.77 mill/uL (4.70-6.10); White Blood Cell (WBC) Count 6.32 10x3/uL (4.8-10.8)
[2025-06-26 04:37] LABS: Anion Gap 15 mmol/L (10-20); BUN (Urea Nitrogen) 15 mg/dL (8.9-20.6); Calc. Creatinine Clearance 107 mL/min (70-130); Calcium 9.3 mg/dL (7.8-10.44); Carbon Dioxide 21 mmol/L (22-29); Chloride 108 mmol/L (98-107); Glucose 94 mg/dL (70-105); Potassium 3.9 mmol/L (3.5-5.1); Sodium 140 mmol/L (136-145)
[2025-06-26] MEDS: Losartan 25 MG TAB PO SCH (10:05)
[2025-06-26 12:22] VITALS: TEMP 98
[2025-06-26 12:44] LABS: EliA APS New Method **** NEW METHOD ****
[2025-06-26] MEDS: hydrALAZINE 20 MG/ML VIAL SLOW IVP PRN (12:56)
[2025-06-26 14:43] VITALS: BP 188/101
[2025-06-26] MEDS ORDERED: Losartan 25 MG TAB PO SCH (21:00)
== END 2025-06-26 15:30 | disposition left against medical advice (07) | DRG 65 ==
LOC: ERS 17:30 → 2SE 20:36
PROVIDERS: ADMIT Internal Medicine; ATTEND Internal Medicine
DX: I63.9 Cerebral infarction, unspecified (principal); G81.91 Hemiplegia, unspecified affecting right dominant side; I73.9 Peripheral vascular disease, unspecified; I10 Essential (primary) hypertension; E78.5 Hyperlipidemia, unspecified; F12.10 Cannabis abuse, uncomplicated; F17.200 Nicotine dependence, unspecified, uncomplicated; R29.703 NIHSS score 3; Z60.2 Problems related to living alone; R29.810 Facial weakness; Z79.899 Other long term (current) drug therapy; Z79.82 Long term (current) use of aspirin; Z53.29 Procedure and treatment not carried out because of patient's decision for other reasons
CPT/HCPCS: 36415; 36416; 70496; 70498; 70551; 71045; 74230; 80048; 80053; 80061; 80306; 80307; 81240; 81241; 83036; 83090; 84484; 85025; 85300; 85303; 85306; 85307; 85379; 85598; 85610; 85730; 86147; 93005; 93306; J0360; J1650; Q9967